=== PATIENT | female | born 1990 | race Hispanic/Latino ===

== ENCOUNTER 2019-08-01 20:18 | Inpatient (IN) | payer SELFPAY ==
--- NOTE | 2019-08-01 21:50 | ULT ---
ULTRASOUND ABDOMEN LIMITED: (RIGHT UPPER QUADRANT) DATE: 08/01/2019 HISTORY: 28-year-old female with right upper quadrant abdominal pain, nausea, and vomiting. FINDINGS: Gallbladder:Distended. Mild mural thickening, 4 mm. Tiny amount of pericholecystic fluid. Multiple ga llstones in proximal body and neck, immobile. Reportedly positive sonographic Goldsmith's sign. Common duct: 5 mm. Liver:Echogenicity within normal limits. Pancreas:No sonographic abnormality. Right kidney:No hydronephrosis. IMPRESSION: Cholelithiasis and evidence for acute cholecystitis.
[2019-08-01] MEDS ORDERED: Metoclopramide HCl 10 MG/2 ML VIAL ONE (22:07)
[2019-08-01] MEDS ORDERED: Piperacillin/Tazobactam 4.5 GM VIAL ONE (22:13)
[2019-08-01] MEDS ORDERED: Promethazine HCl 25 MG/ML VIAL IM PRN (23:12)
[2019-08-01] MEDS ORDERED: Dextrose 5% in Water 1,000 ML IV PRN (23:12)
[2019-08-01] MEDS ORDERED: Sodium Chloride 0.9% 1,000 ML IV SCH (23:12)
[2019-08-01] MEDS ORDERED: Calcium Carbonate 500 MG ChewTAB PO PRN (23:12)
[2019-08-01] MEDS ORDERED: Morphine 2 MG/ML SYRINGE SLOW IVP PRN (23:12)
[2019-08-01] MEDS ORDERED: Ondansetron PF 4 MG/2 ML Vial IVP PRN (23:12)
[2019-08-01] MEDS ORDERED: Mag-Al 1200 mg/1200 mg/30 ML UDCUP PO PRN (23:12)
[2019-08-01] MEDS ORDERED: Dextrose 50% Abboject 50 ML SYRINGE SLOW IVP PRN (23:12)
[2019-08-01] MEDS ORDERED: hydrALAZINE 20 MG/ML VIAL SLOW IVP PRN (23:12)
--- NOTE | 2019-08-01 23:37 | HP ---
REQUESTING PHYSICIAN: Dr. Weathers. ATTENDING SURGEON: Dr. Domingo. HISTORY OF PRESENT ILLNESS: The patient is a 28-year-old woman who presented to the emergency room with acute onset of right upper quadrant pain, started last night, associated with nausea and vomiting, but no fever. The patient reports this is her 1st episode of this. She presents to the emergency department at [facility] where she underwent evaluation and examination to include abdominal CT which showed cholelithiasis and suspected cholecystitis. She was transferred to our facility for ultrasound which confirmed cholelithiasis and cholecystitis at which time, we were asked to evaluate the patient for admission and possible laparoscopic cholecystectomy. ALLERGIES: NONE. CURRENT MEDICATIONS: control shot, the patient unsure of which medication. PAST MEDICAL HISTORY: Hypertension, though the patient does not take medications for it. PAST SURGICAL HISTORY: None. SOCIAL HISTORY: The patient lives at home with family. She denies drug, tobacco, or alcohol use. FAMILY MEDICAL HISTORY: Hypertension, diabetes. REVIEW OF SYSTEMS: A 10-point review of systems is negative as otherwise stated. PHYSICAL EXAMINATION: VITAL SIGNS: Blood pressure 137/90, heart rate 96, respirations 21, oxygen saturation 100% on room air, and temperature is 99.1. GENERAL: The patient is resting comfortably in bed. She is primarily Icelandic speaker. Family was able to help translate when needed. The patient's Juda Coma Scale is 15. HEENT: Head is normocephalic, atraumatic. Eyes, her extraocular motion is intact. PERRLA bilaterally. Ears are atraumatic without discharge. Nose is atraumatic without discharge. Oropharynx is clear. NECK: Nontender. Trachea is midline. No JVD. CHEST: Clear to auscultation with good inspiratory and expiratory efforts, though the patient did complain of some right upper quadrant pain with her deep inspiration. ABDOMEN: Soft, flat, tender in the right upper quadrant with a positive Goldsmith sign. She does have active bowel sounds. EXTREMITIES: Neurovascularly intact x4. There is no evidence of pitting edema. BACK: Atraumatic and nontender. LABORATORY FINDINGS: White blood cell count 15.3, hemoglobin 11.9, hematocrit 39.2, platelets 398. Sodium 139, potassium , chloride 107, CO2 of 22, BUN 7, creatinine 0.65, glucose 107, total bilirubin 0.4, AST 29, ALT 50, alkaline phosphatase 102, lipase 19. Serum hCG is negative. C-reactive protein is 1.43. Urinalysis is unremarkable. RADIOGRAPHIC FINDINGS: 1. CT the abdomen and pelvis with IV contrast performed at [facility] shows a mildly distended gallbladder with evidence of gallstones although no calcified stones are apparent. 2. Evidence of small left ovarian cyst. 3. Small umbilical hernia. Ultrasound shows distended gallbladder with mild mural thickening of 4 mm, tiny amount of pericholecystic fluid, multiple gallstones in the proximal body and neck that are immobile, common bile duct measures 5 mm. Impression is cholelithiasis and evidence for acute cholecystitis. ASSESSMENT: 1. Cholelithiasis with cholecystitis. 2. Abdominal pain secondary to above. PLAN: Plan will be to admit the patient to the surgical floor. She will be made n.p.o. in preparation for laparoscopic cholecystectomy tomorrow morning. The patient will have pain control, pulmonary toilet, gastritis, and mechanical VTE prophylaxis. The evaluation and examination were discussed with Dr. Domingo who is agreement with this plan. Job ID: [id number]
[2019-08-02] MEDS: Acetaminophen 1,000 MG in Premix Bag 1 BAG IVPB SCH ×4 (00:41→19:35)
[2019-08-02] MEDS: Ketorolac Tromethamine 30 MG/ML VIAL IVP SCH ×4 (00:42→19:34)
[2019-08-02 01:08] VITALS: BMI 31.7
[2019-08-02] MEDS: Piperacillin/Tazobactam 3.375 GM in Sodium Chloride 0.9% 100 ML IVPB SCH ×4 (06:09→23:53)
[2019-08-02 08:07] LABS: ALT (SGPT) 97 U/L (8-55); AST (SGOT) 83 U/L (5-34); Albumin 3.8 g/dL (3.5-5.0); Alkaline Phosphatase 99 U/L (40-110); Anion Gap 10 mmol/L (10-20); BUN (Urea Nitrogen) 7 mg/dL (7.0-18.7); Bilirubin, Total 0.7 mg/dL (0.2-1.2); Calc. Creatinine Clearance 168 mL/min (70-130); Calcium 8.8 mg/dL (7.8-10.44); Carbon Dioxide 23 mmol/L (22-29); Chloride 108 mmol/L (98-107); Estimated GFR-MDRD Greater than 90; Globulin 2.7 g/dL (2.4-3.5); Glucose 113 mg/dL (70-105); Potassium 3.7 mmol/L (3.5-5.1); Protein, Total 6.5 g/dL (6.0-8.3); Sodium 137 mmol/L (136-145)
[2019-08-02] MEDS: Famotidine/PF 20 mg/2ml Vial SLOW IVP SCH ×2 (08:33→20:31)
[2019-08-02] MEDS: Famotidine 20 MG TAB PO SCH ×2 (08:35→20:31)
[2019-08-02] MEDS ORDERED: FLU VACC QS2019-20(6MOS UP)/PF 60 MCG/0.5 ML SYRINGE IM ONE (09:00)
[2019-08-02] MEDS ORDERED: Lidocaine 1% PF 5 ML VIAL ONE (10:39)
[2019-08-02] MEDS ORDERED: Glycopyrrolate 0.2 MG/ML 5 ML SYRINGE ONE (10:39)
[2019-08-02] MEDS ORDERED: Rocuronium Bromide 10 MG/ML (10ML VIAL) ONE (10:39)
[2019-08-02] MEDS ORDERED: Ondansetron PF 4 MG/2 ML Vial ONE (10:39)
[2019-08-02] MEDS ORDERED: Dexamethasone 20 MG/5 ML VIAL ONE (10:39)
[2019-08-02] MEDS ORDERED: PROPOFOL 200 MG/20 ML VIAL ONE (10:39)
[2019-08-02] MEDS ORDERED: Fentanyl 100 MCG/2 ML VIAL ONE ×2 (15:56→18:28)
[2019-08-02] MEDS ORDERED: Midazolam HCl 2 mg/2 ml Vial ONE (15:56)
[2019-08-02] MEDS ORDERED: HYDROmorphone 0.5 MG/0.5 ML SYRINGE ONE ×2 (15:56→17:14)
[2019-08-02] MEDS ORDERED: Lidocaine 2% Jelly 5 ML TUBE ONE (15:56)
[2019-08-02] MEDS ORDERED: EPINEPHrine 1 MG/ML AMP ONE (16:12)
[2019-08-02] MEDS ORDERED: Bupivacaine 0.25% HCL 30 ML VIAL ONE (16:12)
[2019-08-02] MEDS ORDERED: Ibuprofen 800 MG TAB PO PRN (18:11)
[2019-08-02] MEDS ORDERED: traMADol HCl 50 MG TAB PO PRN ×2 (18:11)
[2019-08-02] MEDS ORDERED: Ondansetron HCl/PF 4 MG/2 ML Vial IVP PRN (18:13)
[2019-08-02] MEDS ORDERED: Promethazine HCl 25 MG/ML VIAL IM PRN (18:13)
[2019-08-02] MEDS ORDERED: Ketorolac Tromethamine 30 MG/ML VIAL IVP PRN (18:13)
[2019-08-02] MEDS ORDERED: Promethazine HCl 25 MG/ML VIAL SLOW IVP PRN (18:13)
[2019-08-02] MEDS ORDERED: Ketorolac Tromethamine 30 MG/ML VIAL ONE (18:15)
[2019-08-02] MEDS ORDERED: Acetaminophen 500 MG TAB PO SCH (18:30)
--- NOTE | 2019-08-02 18:46 | OP ---
DATE OF PROCEDURE: 08/02/2019 PREOPERATIVE DIAGNOSIS: Acute cholecystitis with cholelithiasis. POSTOPERATIVE DIAGNOSIS: Acute cholecystitis with cholelithiasis. OPERATION PERFORMED: Laparoscopic cholecystectomy. ANESTHESIA: General endotracheal. ESTIMATED BLOOD LOSS: 35 mL. FLUIDS GIVEN: 1500 mL crystalloids. COUNTS: Sponge and instrument counts were verified as correct x2. COMPLICATIONS: None apparent at the time of operation. INDICATIONS FOR OPERATION: A 28-year-old woman, presented with recurrent epigastric and right upper quadrant abdominal pain. Clinical radiographic examination was consistent with acute cholecystitis with cholelithiasis, for which the patient was brought to the operating room for cholecystectomy. Findings are consistent with distended gallbladder in the usual anatomic location, partially encased by omental adhesions. DESCRIPTION OF PROCEDURE: informed consent was obtained from the patient. She was brought to the operating room and placed in supine position. Following general anesthesia, abdomen was sterilely prepped and draped in usual fashion. The skin below the umbilicus was infiltrated with 0.25% Marcaine with epinephrine. A small curvilinear infraumbilical incision was made using 11 scalpel. Umbilical stalk was grasped with John and elevated. Veress needle was inserted through the incision and placed in peritoneal cavity, through which the abdomen was insufflated with 3 L of CO2 gas. Intraabdominal pressure noted at 3 mmHg. Following abdominal insufflation, Veress needle was removed and replaced with a 5 mm trocar introduced using a Visiport under laparoscopy. Laparoscopy confirmed proper placement of the port. No injuries on underlying structures. Additional laparoscopy reveals the right upper quadrant partially obscured by omental adhesions. Under direct laparoscopy, a 12 mm epigastric and two 5 mm right lateral subcostal ports were placed after the overlying skin was infiltrated with 0.25% Marcaine with epinephrine, and appropriate incision was made. The patient was placed in a reverse Trendelenburg position and rotated to her left. I introduced [place] dissector with cautery, using this to take down omental adhesions. I introduced Prestige grasper through the right lateral subcostal port, attempted to grasp the fundus of the gallbladder, which was markedly distended and taut. I decompressed the gallbladder using an Endo suction catheter with cautery at the dome of the gallbladder, evacuating excess bile. I then applied Prestige grasper to the fundus of the gallbladder, which was elevated cephalad. Omental adhesions were dissected free from the remainder of the gallbladder. The cystic duct and artery were dissected free from surrounding structures at the triangle of Calot and critical view obtained. The cystic duct was then divided between clips, applying 2 clips proximally and 1 clip at the junction of the cystic duct and gallbladder. Cystic artery was also divided between clips in a similar fashion. The gallbladder itself was removed from the liver bed using cautery. This was delivered off the abdominal cavity using an EndoCatch. Operative site was inspected for good hemostasis. All clips remained in place. No bile stains present. Finding no other pathology, laparoscopy was terminated. Fascia of the epigastric port was closed using 0 Vicryl suture and Endoclosure device under laparoscopy. The abdomen was desufflated. All ports and instruments removed and accounted for. Skin incision was closed using 4-0 Monocryl suture in subcuticular fashion. Dermabond was applied over incisional closure. The patient tolerated the operation without any apparent complication and was returned to recovery room in satisfactory condition. Job ID: [id number]
[2019-08-02] MEDS ORDERED: Promethazine HCl 25 MG/ML VIAL ONE (19:11)
[2019-08-02] MEDS: Acetaminophen 500 MG TAB PO SCH (23:52)
[2019-08-03] MEDS: Piperacillin/Tazobactam 3.375 GM in Sodium Chloride 0.9% 100 ML IVPB SCH (05:16)
[2019-08-03] MEDS: Acetaminophen 500 MG TAB PO SCH (05:16)
[2019-08-03] MEDS: Famotidine 20 MG TAB PO SCH (08:10)
[2019-08-03 08:41] LABS: #Lymphocytes 1.7 thou/uL (1.20-3.40); #Monocytes 1.1 thou/uL (0.11-0.59); #Neutrophils 11.5 thou/uL (1.40-6.50); %Basophils 0.1 % (0.0-1.0); %Monocytes 7.8 % (0.0-10.0); Hemoglobin 10.1 g/dL (12.0-16.0); Mean Corpuscular HGB CONC 33.1 g/dL (32.0-36.0); Mean Corpuscular Volume 84.5 fL (78.0-98.0); Mean Platelet Volume 7.2 fL (7.4-10.4); Platelet Count 310 thou/uL (130-400); RBC Distribution Width 12.5 % (11.5-14.5); White Blood Cell (WBC) Count 14.4 thou/uL (4.8-10.8)
[2019-08-03 08:54] LABS: ALT (SGPT) 113 U/L (8-55); AST (SGOT) 74 U/L (5-34); Albumin 3.8 g/dL (3.5-5.0); Alkaline Phosphatase 108 U/L (40-110); Bilirubin, Direct 0.3 mg/dL (0.1-0.3); Bilirubin, Total 0.6 mg/dL (0.2-1.2); Protein, Total 6.6 g/dL (6.0-8.3)
[2019-08-03 11:49] VITALS: BP 122/80; TEMP 98.1
--- NOTE | 2019-08-04 01:23 | DIS ---
DATE OF ADMISSION: 08/02/2019 DATE OF DISCHARGE: 08/03/2019 ADMITTING PHYSICIAN: Lyle Domingo DO DISCHARGE PHYSICIAN: Lyle Domingo DO ADMITTING DIAGNOSIS: Acute cholecystitis, cholelithiasis. DISCHARGE DIAGNOSES: Acute cholecystitis, cholelithiasis. OPERATION PERFORMED: Laparoscopic cholecystectomy on 08/02/2019. HISTORY: This is a 28-year-old woman presented with recurrent epigastric right upper quadrant abdominal pain. Clinical and radiographic examination were consistent with acute cholecystitis, cholelithiasis, for which the patient underwent an uneventful laparoscopic cholecystectomy yesterday. Following surgery, the patient was admitted to the surgical floor. She has remained hemodynamically stable and afebrile. This morning, she is tolerating general diet. She is ambulating with minimum difficulty. Her pain is adequately controlled on oral analgesics. In fact, this morning, she reports 2/10 abdominal pain for which she has taken no pain medications since last night. PHYSICAL EXAMINATION: VITAL SIGNS: This morning include blood pressure 103/71, pulse 83, respiratory rate is 20, temperature is 97.9 degrees Fahrenheit, oxygen saturation is 99% on room air. ABDOMEN: Soft. Incision is intact with incisional tenderness to palpation. She clearly has no peritoneal signs on examination. NEUROLOGIC: Reveals no focal deficits present. LABORATORY FINDINGS: Today include CBC with 14,400 white blood cells, hemoglobin and hematocrit 10.1 and 30.4 respectively. Platelet count is 310,000. LFTs include total bilirubin 0.6, it was 0.7 yesterday. AST and ALT today 74 and 113 respectively, it was 83 and 97 yesterday respectively. Alkaline phosphatase remains normal at 108. DISCHARGE INSTRUCTIONS: The patient has maximized hospital benefit and will be discharged home with the following instructions. 1. She may take Tylenol 1000 mg p.o. q.6 hours p.r.n. pain, alternating this with ibuprofen 800 mg p.o. q.8 hours p.r.n. pain. Additionally, she is given a prescription for tramadol 50 mg #20 to be taken 1 to 2 pills q.6 hours p.r.n. pain. She is to avoid weight lifting in excess of 20 pounds until she is released by me. 2. She may shower effective tomorrow and avoid swimming or soaking herself in a bathtub. 3. She is encouraged to ambulate frequently to avoid complications of venous thromboembolism. She may advance her diet as tolerated. 4. She is to call me with any questions or problems including exacerbation of abdominal pain, fever in excess of 101 degrees Fahrenheit, or intolerance to oral intake. 5. She is to follow up with me in the Surgery [facility] in 2 weeks. Above instructions given to the patient in the presence of her nurse. She indicates understanding information given. I have answered her questions. 6. The patient has expressed gratitude for the care rendered to her during this hospitalization and surgery. Noted that all discharge instructions were provided to the patient through a risk control field representative. Job ID: [id number]
== END 2019-08-03 11:20 | disposition home or self-care (01) | DRG 419 ==
LOC: ERS 20:18 → SURG B 08-02 00:28
PROVIDERS: ADMIT Surgery; ATTEND Surgery
PROC: 0FT44ZZ Resection of Gallbladder, Percutaneous Endoscopic Approach (ICD-10-PCS; principal; 2019-08-02)
PROC: 3E02340 Introduction of Influenza Vaccine into Muscle, Percutaneous Approach (ICD-10-PCS; 2019-08-02)
PROC: 3E033XZ Introduction of Vasopressor into Peripheral Vein, Percutaneous Approach (ICD-10-PCS; 2019-08-02)
DX: K80.00 Calculus of gallbladder with acute cholecystitis without obstruction (principal); I10 Essential (primary) hypertension; Z23 Encounter for immunization
CPT/HCPCS: 36415; 76705; 80053; 80076; 85025; 88304; 90471; 90686; 96365; 96367; G0008; J0131; J0171; J1100; J1170; J1885; J2001; J2250; J2405; J2543; J2550; J2704; J2765; J3010; J3490; S0020; S0028